=== PATIENT | male | born 1990 | race Caucasian/White ===

== ENCOUNTER 2024-10-04 11:14 | Emergency (ER) | payer BC, SELFPAY ==
[2024-10-04 11:18] VITALS: BP 169/104
--- NOTE | 2024-10-04 11:54 | ED.GENMED ---
History of Present Illness
General
Chief Complaint: Musculo-Skeletal Complaint
Source: patient
Exam Limitations: none
Time Seen by Provider: 10/04/24 11:37
Nursing documentation reviewed up to this point in time: agreed with
History of Present Illness
History of Present Illness:
see MDM
Past History
Social History
Tobacco: Non-smoker
Alcohol: None
Review of Systems
Review of Systems
Allergies reviewed?: Yes
All Other Systems: Not applicable
Phy Exam
Physical Exam
Physical Exam:
GENERAL: Alert , in no apparent distress, comfortable at rest
HEAD: NCAT
CV cap refill intact
2+ radial pulse
NEUROLOGICAL: Alert and oriented, no focal neuro deficits, , 5/5 strength, sensation intact, ambulation slight limp right leg
SKIN: Warm and dry,
MUSCULOSKELETAL: L hand mild tenderness 2nd and 3rd MCP joint mild swelling/bruising
normal ROM
dionte wrist/elbow/hands
PSYCH: Normal and appropriate interaction.
Course
Orders/Labs/Results
Orders:
Orders
10/04/24 11:21
Hand, Left 3 View [CR Hand - Left Min 3 Views] Urgent
Comment:
Reason For Exam: injury
10/04/24 12:09
Ibuprofen [Motrin] 600 mg .ROUTE .STK-MED ONE
10/04/24 12:10
Ibuprofen [Motrin] 600 mg PO NOW STA
Vital Signs
Initial and Last Documented VS:
Initial Vital Signs
Temp Pulse Resp BP Pulse Ox
36.7 C 78 18 169/104 98
10/04/24 11:18 10/04/24 11:18 10/04/24 11:18 10/04/24 11:18 10/04/24 11:18
Last Documented Vital Signs
Temp Pulse Resp BP Pulse Ox
36.7 C 78 18 169/104 98
10/04/24 11:18 10/04/24 11:18 10/04/24 11:18 10/04/24 11:18 10/04/24 11:57
MDM/Problems Addressed
Differential Diagnosis Includes:
see MDM
MDM/Problems Addressed:
Note:
CHIEF COMPLAINT(S)
Hand pain after punching a door.
HISTORY OF PRESENT ILLNESS
The patient is a 33-year-old male who presented with pain in his hand after punching a door. He reported that he punched the door while trying to open it, and there was no specific emotional trigger or frustration at the time. he patient denied any
numbness, tingling, or pain extending to the wrist and elbow. He confirmed that there was no head or elbow injury. There was tenderness on palpation of the hand. He did not take any medication for pain prior to the visit.
PHYSICAL EXAM
- Hand: Tenderness present upon palpation.
see above
- Wrist and Elbow: No pain upon palpation.
- Vital signs reviewed.
PROBLEM LIST
Acute Problems:
- Hand contusion after trauma.
PLAN
- The patient was advised that the hand injury is likely a contusion, with no fracture observed on X-ray.
- Recommended treatment includes applying an elastic bandage during the day, taking ibuprofen as needed for pain, and removing the bandage at night.
- The patient agreed to take ibuprofen for immediate pain relief.
DIFFERENTIAL DIAGNOSIS
The Differential Diagnosis includes, in no particular order and is not limited to:
1. Hand contusion
2. Metacarpal fracture
3. Soft tissue injury
4. Ligament sprain
5. Tendon injury
6. Joint dislocation
7. Carpal bone injury
8. Compartment syndrome
9. Bone bruise
xray indep reviewed, neg for fx
nsaids, ice justin wrap
*Pulse Oximetry
SaO2: 98
Oxygen Mode of Delivery: Room air
Patient hypoxic: no (98)
*Critical Care Note
Total Time (30-74mins, 75-104mins- exclusive of procedures): Not Applicable
ED Attending Note
-
Portions of this chart may have been created with voice recognition software.� Occasional wrong word or��sound alike� substitutions may have occurred due to the inherent limitations of voice recognition software.
Discharge Plan
Departure
Patient Disposition: Home (Routine Discharge)
Date of Disposition: 10/04/24
Time of Disposition: 12:07
Patient with high blood pressure during this ER visit?: Yes
Condition: Fair
Discharge Problem:
Contusion of hand, left, Elevated blood pressure reading
Instructions: Contusion (DC), BLOOD PRESSURE
Referrals:
NONE,* [Family Provider, Internal Medicine]
Toribio Newman MD [Active, Orthopedics] - Follow up in 1 week
Activity Restrictions/Additional Instructions:
Your x-rays do not show any signs of a fracture. You likely have a contusion which is a bruise. Ice off-and-on every few hours, and remove the Justin wrap during the icing and then really apply the Justin wrap. Make sure to leave the Justin wrap off
overnight. Ibuprofen 800 mg 3 times a day with food for 3 to 5 days. Return for any concerns, otherwise you can follow-up with the hand doctor as needed
Interventions
Interventions:
*Risk Screen - Suicide Last Done: 10/04/24 11:18
*Neglect/Abuse Screening Last Done: 10/04/24 11:18
*Nursing Disposition Last Done: 10/04/24 12:12
ED-Musculoskeletal Assessment Last Done: 10/04/24 11:42
Discharge Date and Time
Discharge Date/Time: 10/04/24 12:13
Print Language: TAMAZIGHT
[2024-10-04] MEDS: MOTRIN 600 MG PO (12:10)
== END 2024-10-04 12:13 | disposition home or self-care (01) ==
LOC: EMR 11:14
PROVIDERS: EMERGENCY PHYSICIAN Emergency Medicine
DX: S60.222A Contusion of left hand, initial encounter (principal); W22.09XA Striking against other stationary object, initial encounter
CPT/HCPCS: 99283; 73130